=== PATIENT | male | born 1985 | race Caucasian/White ===

== ENCOUNTER 2018-09-29 11:44 | Emergency (ER) | payer OTHER | END 2018-09-29 14:50 | disposition home or self-care (01) | LOC: FTE 11:44 | DX: S62.323A Displaced fracture of shaft of third metacarpal bone, left hand, initial encounter for closed fracture (principal); X58.XXXA Exposure to other specified factors, initial encounter; Y92.9 Unspecified place or not applicable | CPT/HCPCS: 73130; 73130-LT; 99283-25 ==